=== PATIENT | female | born 1965 | race Caucasian/White ===

== ENCOUNTER → 2021-02-04 | Outpatient (CLI) | payer OTHER ==
[2021-02-07 15:36] LABS: CORONAVIRUS (COVID19) CSH-NRL Negative (Negative)
== END ==
LOC: LAB SHORT 15:22
PROVIDERS: Physician Assistant
DX: Z20.822 Contact with and (suspected) exposure to COVID-19 (principal)
CPT/HCPCS: U0003

== ENCOUNTER → 2021-03-20 | Outpatient (CLI) | payer OTHER | END | disposition home or self-care (01) | LOC: LAB SHORT 10:45 | DX: R31.0 Gross hematuria (principal) | CPT/HCPCS: 87077; 87086; 87186; 88108 ==

== ENCOUNTER → 2021-04-07 | Outpatient (CLI) | payer OTHER ==
[2021-04-07 08:48] LABS: Source, Urine Clean Catch
[2021-04-07 13:38] LABS: Bilirubin, Urine Neg (Neg); Blood, Urine Neg (Neg); Glucose Qualitative, Urine Neg (Neg); Ketones, Urine 1+ (Neg); Leukocyte Esterase, Urine 1+ (Neg); Nitrite, Urine Neg (Neg); Protein, Urine 1+ (Neg); Specific Gravity, Urine 1.015 (1.003-1.022); Urobilinogen, Urine NORM (Normal)
[2021-04-07 13:47] LABS: Appearance, Urine Clear (Clear); Color, Urine Pale Yellow (P-Yellow)
[2021-04-07 13:48] LABS: Red Blood Cells, Urine 0-2 /hpf (0-2)
[2021-04-07 13:49] LABS: Bacteria Rare /hpf; Mucus Light (0-Heavy); Squamous Epithelial Cells Few /hpf (Few)
== END | disposition home or self-care (01) ==
LOC: LAB SHORT 08:38
PROVIDERS: Nurse Practitioner Family
DX: N30.01 Acute cystitis with hematuria (principal)
CPT/HCPCS: 81001; 87086

== ENCOUNTER → 2021-09-25 | Outpatient (CLI) | payer OTHER | END | disposition home or self-care (01) | LOC: LAB SHORT 11:20 → LAB 11:20 | DX: R35.0 Frequency of micturition (principal) | CPT/HCPCS: 87086 ==

== ENCOUNTER 2022-04-28 23:47 | Emergency (ER) | payer MEDICARE ==
[~2022-04-28] VITALS: Ht 160 cm; Wt 85.7 kg
[2022-04-29] MEDS ORDERED: HYDRA25 PO (00:34)
[2022-04-29] MEDS ORDERED: AMLO5 PO (00:34)
[2022-04-29] MEDS ORDERED: LOSA25 PO (00:34)
[2022-04-29] MEDS ORDERED: Vistaril25 MG PO (00:35)
[2022-04-29] MEDS ORDERED: Nortriptyline H75 MG PO (00:35)
[2022-04-29] MEDS ORDERED: ATOR20 PO (00:35)
[2022-04-29] MEDS ORDERED: GABA300 PO (00:36)
[2022-04-29] MEDS ORDERED: ALBU90OI INH (00:36)
[2022-04-29] MEDS ORDERED: ALPR.25 PO (00:36)
[2022-04-29] MEDS ORDERED: FLUT1DIS5 INH (00:37)
== END 2022-04-29 01:16 | disposition home or self-care (01) ==
LOC: ER 23:47
DX: G56.01 Carpal tunnel syndrome, right upper limb (principal)
CPT/HCPCS: 99283

== ENCOUNTER → 2023-08-04 | Outpatient (CLI) | payer MEDICARE ==
[~2023-08-04] MED LIST: ALBU90OI INH; ALPR.25 PO; AMLO5 PO; ATEN50 PO; ATOR20 PO; FLUT1DIS5 INH; GABA300 PO; HYDRA25 PO; LOSA25 PO; Nortriptyline H75 MG PO; Vistaril25 MG PO
[2023-08-04 11:23] LABS: Stool Occult Bld Immuno 1 Negative (NEGATIVE)
[2023-08-04 11:52] LABS: Adenovirus F 40/41 Not Detected (NOT DETECT); Astrovirus Not Detected (NOT DETECT); Campylobacter Sp Not Detected (NOT DETECT); Cryptosporidium Not Detected (NOT DETECT); Cyclospora Cayetanensis Not Detected (NOT DETECT); E. Coli O157 Not Detected (NOT DETECT); Entamoeba Histolytica Not Detected (NOT DETECT); Enteroaggregative E. coli-EAEC Not Detected (NOT DETECT); Enteropathogenic E. coli-EPEC Not Detected (NOT DETECT); Enterotoxigenic E. coli-ETEC Not Detected (NOT DETECT); Giardia Lamblia Not Detected (NOT DETECT); Norovirus GI/GII Not Detected (NOT DETECT); Plesiomonas Shigelloides Not Detected (NOT DETECT); Rotavirus A Not Detected (NOT DETECT); Salmonella Sp Not Detected (NOT DETECT); Sapovirus Not Detected (NOT DETECT); Shiga Toxin-prod E. coli-STEC Not Detected (NOT DETECT); Shigella/Enteroin E. coli-EIEC Not Detected (NOT DETECT); Vibrio Cholerae Not Detected (NOT DETECT); Vibrio Sp Not Detected (NOT DETECT); Yersinia Enterocolitica Not Detected (NOT DETECT)
[2023-08-06 07:21] LABS: OVA AND PARASITE,FECAL INTERP Negative (Negative)
[2023-08-06 12:01] LABS: CALPROTECTIN,FECAL 53 ug/g (<=49)
== END | disposition home or self-care (01) ==
LOC: LAB 06:50 → LAB SHORT 06:50
PROVIDERS: Family Medicine
DX: K52.9 Noninfective gastroenteritis and colitis, unspecified (principal); R19.7 Diarrhea, unspecified
CPT/HCPCS: 83993; 87177; 87209; 87507; G0328

== ENCOUNTER 2023-09-17 13:42 | Day surgery (SDC) | payer MEDICARE ==
[2023-09-17] VITALS (18 sets, daily range): BP systolic 71–146; BP diastolic 38–94
[~2023-09-17] VITALS: Ht 160 cm; Wt 84.1 kg
[~2023-09-17 13:42] MED LIST changes: +Lactated Ringer's 1,000 ML IV SCH
[2023-09-17] MEDS ORDERED: Midazolam HCl 1MG / ML 2ML Vial ONE ×2 (15:09→15:28)
[2023-09-17] MEDS ORDERED: propofoL 40 ML IV ONE (15:09)
--- NOTE | 2023-09-17 15:20 | NUR ---
09/17/23 1520 Jolynn Bates HISTORY, CHART, MEDICATIONS AND ALLERGIES REVIEWED BEFORE START OF PROCEDURE. PATIENT CONFIRMS NPO STATUS AND AGREES WITH SCHEDULED PROCEDURE. 3-LEAD EKG REVIEWED WITH PHYSICIAN PRIOR TO START OF PROCEDURE. MONITOR INTACT WITH CONTINUOUS PULSE OXIMETRY,CAPNOGRAPHY, 3-LEAD EKG, INTERMITTENT BP. SUPPLEMENTAL O2 TO BE TITRATED THROUGHOUT PROCEDURE TO MAINTAIN O2 SATURATION ABOVE 90%. PATIENT DETERMINED TO BE ASA APPROPRIATE FOR PROPOFOL SEDATION PRIOR TO START OF PROCEDURE BY .MALLAMPATI CLASS 2 AIRWAY: COMPLETE VISUALIZATION OF THE [facility].
== END 2023-09-17 16:26 | disposition home or self-care (01) ==
LOC: ORSCMMR 13:42 → ORSCSDS 15:00 → ORD 15:15 → ORSCSDS 15:15 → ORSCMMR 15:15
PROVIDERS: Internal Medicine Gastroenterology
PROC: 0DBK8ZX Excision of Ascending Colon, Via Natural or Artificial Opening Endoscopic, Diagnostic (ICD-10-PCS; principal; 2023-09-17 15:15)
PROC: 0DBE8ZX Excision of Large Intestine, Via Natural or Artificial Opening Endoscopic, Diagnostic (ICD-10-PCS; principal; 2023-09-17 15:15)
PROC: 0DBH8ZX Excision of Cecum, Via Natural or Artificial Opening Endoscopic, Diagnostic (ICD-10-PCS; principal; 2023-09-17 15:15)
PROC: 0DBL8ZX Excision of Transverse Colon, Via Natural or Artificial Opening Endoscopic, Diagnostic (ICD-10-PCS; principal; 2023-09-17 15:15)
DX: R19.7 Diarrhea, unspecified (principal); K62.5 Hemorrhage of anus and rectum; R12 Heartburn; K21.9 Gastro-esophageal reflux disease without esophagitis; R63.4 Abnormal weight loss; K63.5 Polyp of colon; D12.2 Benign neoplasm of ascending colon; D12.3 Benign neoplasm of transverse colon; K57.30 Diverticulosis of large intestine without perforation or abscess without bleeding; J44.9 Chronic obstructive pulmonary disease, unspecified; F41.9 Anxiety disorder, unspecified; E78.5 Hyperlipidemia, unspecified; I10 Essential (primary) hypertension; G47.33 Obstructive sleep apnea (adult) (pediatric); Z87.891 Personal history of nicotine dependence; Z79.899 Other long term (current) drug therapy
CPT/HCPCS: 88305; J2250; J2704; J7120